=== PATIENT | female | born 1990 | race Hispanic/Latino ===

== ENCOUNTER → 2016-08-19 | Outpatient (CLI) | payer OTHER ==
--- NOTE | 2016-08-22 08:10 | MRI ---
Study: MRI of the Brain. Indication: HEADACHES Technique: Multiplanar, multi sequence MRI of the brain obtained without intravenous contrast. Comparison: None. Findings: No MRI evidence of acute ischemia, acute hemorrhage, mass, mass effect, midline shift, or extra-axial fluid collection. Ventricles are normal in configuration without hydrocephalus. Brain parenchyma demonstrates a normal appearance for patient's age. Midline structures are intact. Paranasal sinuses are adequately aerated. Mastoid air cells are adequately aerated. Osseous structures and soft tissues demonstrate normal signal characteristics. Impression: 1. No MRI evidence of acute intracranial abnormality. Electronically signed by: Richard Lim MD 08/22/2016 08:09
== END ==
LOC: MRI 13:52
PROVIDERS: ATTEND Family Medicine
DX: G44.209 Tension-type headache, unspecified, not intractable (principal)

== ENCOUNTER → 2019-10-01 | Outpatient (CLI) | payer BC, OTHER ==
--- NOTE | 2019-10-02 21:18 | US ---
EXAM DESCRIPTION: Breast,Right: Ultrasound CLINICAL HISTORY: 29 yearsFemaleRIGHT BREAST LUMP . Masses palpable at 12:00 and 8:00 positions posterior. No personal history of breast cancer. No prior mammograms. Remote family history of breast cancer. Menarche age 13. No childbirth. Premenopausal. Patient took Biote less than 5 years ago. Lifetime risk of developing breast cancer (Tyrer-Cuzick model)(%): Not Calculated due to patient under the age of 35. COMPARISON: None. TECHNIQUE: Transcutaneous scanning of the right utilizing roberson-scale and Doppler modes. Scanning performed by the laminator printed circuit boards ; observation by Dr. Plata. FINDINGS: Ultrasound: Scanning of the regions of interest in the upper posterior right breast in the lower outer quadrant posterior right breast. Landscape Architect And Planner was able to palpate the regions of interest. Underlying tissue is predominantly fibroglandular with typical appearance. Minimal fat layer underlying the scan. Palpable ridges are present. No dominant solid mass or distinct cyst. No parenchymal edema or large calcifications. No overlying skin changes. IMPRESSION: Benign exam. BIRAD CATEGORY: 2 BENIGN FINDINGS. RECOMMENDATIONS: FOLLOW UP: The region of interest should be followed on clinical grounds, and if noted to change in size or character, a targeted/directed follow-up on US examination may be performed. Written communication explaining the IMPRESSION and follow-up, will be mailed to the patient and referring health care provider. The FINDINGS and the FOLLOW-UP plan were reviewed in person with the patient after the examination. According to the [employer], yearly mammograms are recommended starting at age 40 and continuing as long as a woman is in good health. Any breast change noted on a breast self-exam should be reported promptly to the patient's healthcare provider. Breast MRI is recommended for women with an approximately 20-25% or greater lifetime risk of breast cancer, including women with a strong family history of breast or ovarian cancer and women who have been treated for Hodgkin's disease. Electronically signed by: Christos Plata MD 10/02/2019 9:16 PM INVESTMENT OFFICER
== END ==
LOC: US 07:39
PROVIDERS: ATTEND Physician Assistant
DX: N63.11 Unspecified lump in the right breast, upper outer quadrant (principal); N63.13 Unspecified lump in the right breast, lower outer quadrant